=== PATIENT | female | born 1980 | race Caucasian/White ===

== ENCOUNTER 2016-09-26 07:05 | Emergency (ER) | payer OTHER ==
--- NOTE | 2016-09-26 08:00 | ED ORDER SUMMARY ---
..... Patient: ISA JOSEPH OrderSheet [facility] VisitID: [id number] [address] [place] [address] 36y, F Registration Date/Time: 09/26/2016 ORDER SHEET Weight: 74.3 kg (stated) Allergies: Penicillin GENERAL ORDERS: Nasal Bones Urgent (07:24 09/26/2016 Negrito DUBOIS) (Ack 7:38 LNations ER Tech1) (Cancelled: Other7:47 Negrito DUBOIS) Nasal Bones Urgent (07:47 09/26/2016 Negrito DUBOIS) (8:08 LNations ER Tech1) MEDICATION ORDERS: IV FLUIDS: ORDER SHEET NOTES: [Electronically signed by Marta Cavanaugh R.N. (08:22 09/26/2016)] [Electronically signed by Jose Cotter MD (08:10 09/28/2016)] [Electronically locked/signed by Marta Cavanaugh R.N. (08:09/26/2016)]
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
--- NOTE | 2016-09-26 08:00 | ED ORDER SUMMARY ---
..... Patient: ISA JOSEPH OrderSheet [facility] VisitID: [id number] [address] [place] [address] 36y, F Registration Date/Time: 09/26/2016 ORDER SHEET Weight: 74.3 kg (stated) Allergies: Penicillin GENERAL ORDERS: Nasal Bones Urgent (07:24 09/26/2016 Negrito DUBOIS) (Ack 7:38 LNations ER Tech1) (Cancelled: Other7:47 Negrito DUBOIS) Nasal Bones Urgent (07:47 09/26/2016 Negrito DUBOIS) (8:08 LNations ER Tech1) MEDICATION ORDERS: IV FLUIDS: ORDER SHEET NOTES: [Electronically signed by Marta Cavanaugh R.N. (08:22 09/26/2016)] [Electronically signed by Jose Cotter MD (08:10 09/28/2016)] [Electronically locked/signed by Marta Cavanaugh R.N. (08:09/26/2016)]
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
--- NOTE | 2016-09-28 08:11 | ED MAR SUMMARY ---
..... Medication Administration Record [facility] [address] [place], [place] [id number] Patient: ISA JOSEPH Visit ID: [id number] 36y, F Weight: 74.3 kg Height/Length: 68 in BMI: 24.9 ALLERGIES: Penicillin
--- NOTE | 2016-09-28 08:11 | ED MAR SUMMARY ---
..... Medication Administration Record [facility] [address] [place], [place] [id number] Patient: ISA JOSEPH Visit ID: [id number] 36y, F Weight: 74.3 kg Height/Length: 68 in BMI: 24.9 ALLERGIES: Penicillin
--- NOTE | 2016-09-28 08:11 | ED MED RECONCILIATION SUMMARY ---
Patient: ISA JOSEPH Medication Reconciliation Report [facility] VisitID: [id number] [address] [place] [address] 36y, F Registration Date/Time: 09/26/2016 Weight: 74.3 kg Height/Length: 68 in. BMI: 24.9 ALLERGIES: Penicillin The patient's Home Medications are listed below: CONTINUE TAKING THE FOLLOWING MEDICATIONS: Maalox Oral Omeprazole Oral Vitamins Oral Ranitidine HCl Oral Tums Oral The source(s) of the original Home Medication information: patient The following Medications were given to the patient in the Emergency Department: None. The following Medications were prescribed to the patient: Acetaminophen (available over the counter): take according to label instructions. -- Jose Cotter MD Cephalexin 500mg: take 1 tab orally every 6 hours for 7 days. No refills -- Jose Cotter MD
--- NOTE | 2016-09-28 08:11 | ED MED RECONCILIATION SUMMARY ---
Patient: ISA JOSEPH Medication Reconciliation Report [facility] VisitID: [id number] [address] [place] [address] 36y, F Registration Date/Time: 09/26/2016 Weight: 74.3 kg Height/Length: 68 in. BMI: 24.9 ALLERGIES: Penicillin The patient's Home Medications are listed below: CONTINUE TAKING THE FOLLOWING MEDICATIONS: Maalox Oral Omeprazole Oral Vitamins Oral Ranitidine HCl Oral Tums Oral The source(s) of the original Home Medication information: patient The following Medications were given to the patient in the Emergency Department: None. The following Medications were prescribed to the patient: Acetaminophen (available over the counter): take according to label instructions. -- Jose Cotter MD Cephalexin 500mg: take 1 tab orally every 6 hours for 7 days. No refills -- Jose Cotter MD
== END 2016-09-26 08:10 | disposition home or self-care (01) ==
LOC: ED SRH 07:05
DX: O9A.213 Injury, poisoning and certain other consequences of external causes complicating pregnancy, third trimester (principal); S02.2XXB Fracture of nasal bones, initial encounter for open fracture; Z3A.00 Weeks of gestation of pregnancy not specified; Y04.0XXA Assault by unarmed brawl or fight, initial encounter; Y93.9 Activity, unspecified; Y99.9 Unspecified external cause status; Y92.410 Unspecified street and highway as the place of occurrence of the external cause; Z79.899 Other long term (current) drug therapy; F17.210 Nicotine dependence, cigarettes, uncomplicated; Z88.0 Allergy status to penicillin